=== PATIENT | female | born 1965 | race Caucasian/White ===

== ENCOUNTER 2019-05-16 15:02 | Inpatient (IN) | payer OTHER ==
--- NOTE | 2019-05-16 15:16 | PDOC ---
Rapid Medical Evaluation Chief Complaint: Blood Pressure Problem Time Seen by Provider: 05/16/19 15:14 Medical Evaluation: 05/16/19 15:14 cc: dizziness x 3 weeks HPI: Patient reports dizziness x 3 weeks and elevated blood pressure. States taking medication for HTN but not lowering her pressure. Seen in another hospital one week ago for the same but left without being seen. Denies chest pain PE: NAD unlabored breathing no edematous legs orders: ekg, labs ordered This patient will proceed to the main emergency department for further evaluation Discharge Disposition - Diagnosis Dizziness - Discharge Dispostion Condition at time of disposition: Stable - Referrals - Patient Instructions - Post Discharge Activity
--- NOTE | 2019-05-16 15:28 | PDOC ---
History of Present Illness - General Chief Complaint: Blood Pressure Problem Stated Complaint: HYPERTENSION Time Seen by Provider: 05/16/19 15:14 History Source: Patient Exam Limitations: No Limitations - History of Present Illness Initial Comments: 05/16/19 18:56 53 yo F with a hx of HTN and COPD presents to the emergency department with dizziness. Per the patient she has felt dizzy for the past 4 weeks with intermittent onset and varied duration. The patient states she developed a headache and another episode in concurrence today with worsened severity. The patient states the dizziness worsens with movement and improved with laying still. Endorses the following: nausea, vomiting, double vision. Denies the following: FND, fevers, chills, ears/nose/throat pain, chest pain, SOB, back pain, abdominal pain, dysuria, hematuria, diarrhea, and leg pain/swelling. Allergies: morphine Past History - Past Medical History Allergies/Adverse Reactions: Allergies Allergy/AdvReac Type Severity Reaction Status Date / Time morphine Allergy Verified 05/16/19 15:15 Home Medications: Ambulatory Orders Clonidine HCl 0.1 mg PO DAILY 05/16/19 Cyclobenzaprine HCl 10 mg PO HS 05/16/19 Lisinopril 20 mg PO DAILY 05/16/19 Pregabalin 200 mg PO TID 05/16/19 Tramadol HCl 50 mg PO QID 05/16/19 Umeclidinium Brm/Vilanterol Tr [Anoro Ellipta 62.5-25 Mcg INH] 1 puff IN DAILY 05/16/19 Albuterol Sulfate Inhaler - [Ventolin Hfa Inhaler -] 1 - 2 inh PO PRN 05/17/19 Escitalopram Oxalate [Lexapro -] 5 mg PO DAILY 05/17/19 Cyclobenzaprine HCl [Flexeril -] 10 mg PO HS tablet 05/19/19 Escitalopram Oxalate [Lexapro -] 20 mg PO DAILY tablet 05/19/19 Meclizine HCl [Antivert -] 25 mg PO Q6H PRN #30 tablet 05/19/19 Nicotine Patch [Nicoderm Patch -] 14 mg TD DAILY #30 patch 05/19/19 Nystatin Cream [Mycostatin] 1 applic TP BID #1 tube 05/19/19 Pramipexole Dihydrochloride [Mirapex -] 0.25 mg PO BID #60 tablet 05/19/19 Pregabalin [Lyrica -] 200 mg PO TID capsule MDD 3 05/19/19 Topiramate [Topamax -] 25 mg PO BID #30 tablet 05/19/19 COPD: No HTN: Yes Other medical history: ANXIETY - Surgical History Appendectomy: Yes Cholecystectomy: No GI Surgery: No - Immunization History Immunization Up to Date: No - Psycho Social/Smoking Cessation Hx Smoking History: Current every day smoker Have you smoked in the past 12 months: Yes Number of Cigarettes Smoked Daily: 20 Information on smoking cessation initiated: No Hx Alcohol Use: No Drug/Substance Use Hx: No Review of Systems - Review of Systems Able to Perform ROS?: Yes Is the patient limited Turkmen proficient: No Constitutional: Yes: Weakness. No: Chills, Diaphoresis, Fever HEENTM: No: Eye Pain, Ear Pain, Nose Pain, Throat Pain, Mouth Pain Respiratory: No: Cough, Shortness of Breath, Hemoptysis Cardiac (ROS): No: Chest Pain, Lightheadedness, Palpitations, Chest Tightness ABD/GI: No: Constipated, Diarrhea, Nausea, Rectal Bleeding, Vomiting, Tarry Stools : No: Burning, Dysuria, Hematuria Musculoskeletal: No: Back Pain, Joint Pain, Neck Pain Integumentary: No: Bruising, Erythema, Rash Neurological: Yes: Unsteady Gait, Dizziness. No: Headache, Numbness, Tingling, Tremors Psychiatric: No: Change in Appetite Endocrine: No: Unexplained Weight Gain, Unexplained Weight Loss Hematologic/Lymphatic: No: Anemia *Physical Exam - Vital Signs Last Vital Signs Temp Pulse Resp BP Pulse Ox 98.2 F 92 H 16 173/96 H 98 05/16/19 15:13 05/16/19 15:13 05/16/19 15:13 05/16/19 15:13 05/16/19 15:13 - Physical Exam General Appearance: Yes: Nourished, Appropriately Dressed. No: Apparent Distress, Intoxicated HEENT: positive: EOMI, EDDIE, Normal Voice, Symmetrical, Pharynx Normal, Hearing Grossly Normal. negative: Pale Conjunctivae, Scleral Icterus (R), Scleral Icterus (L), Muffled/Hoarse voice, Pharyngeal Erythema, Tonsillar Exudate, Tonsillar Erythema, Nasal Congestion, Rhinorrhea, Sinus Tenderness, Excessive drooling Neck: positive: Trachea midline, Supple. negative: Tender, Lymphadenopathy (R) , Lymphadenopathy (L), Tender lateral, Tender midline Respiratory/Chest: positive: Lungs Clear, Normal Breath Sounds. negative: Chest Tender, Respiratory Distress, Accessory Muscle Use, Crackles, Rales, Rhonchi, Stridor, Wheezing Cardiovascular: positive: Regular Rhythm, Regular Rate, S1, S2. negative: Systolic Murmur Gastrointestinal/Abdominal: positive: Normal Bowel Sounds, Flat, Soft. negative : Tender, Distended, Guarding, Rebound Lymphatic: negative: Adenopathy Musculoskeletal: positive: Normal Inspection. negative: CVA Tenderness, Vertebral Tenderness Extremity: positive: Normal Capillary Refill, Normal Inspection, Normal Range of Motion. negative: Tender, Swelling, Calf Tenderness Integumentary: positive: Normal Color, Dry, Warm. negative: Jaundice, Moist, Hives, Petechiae, Rash, Swelling Neurologic: positive: Fully Oriented, Alert, Normal Mood/Affect, Motor Strength 5/5. negative: EOM Palsy, Facial Droop, Sensory Deficit, Finger to Nose ( deficit of FTN on the RUE) ED Treatment Course - LABORATORY CBC & Chemistry Diagram: 05/17/19 07:58 05/17/19 07:58 Medical Decision Making - Medical Decision Making 05/16/19 18:59 ddx: central vs peripheral vertigo. patient to get head CT and labs to rule out electrolyte vs infectious etiology Laboratory Tests 05/16/19 05/16/19 15:41 15:51 WBC 11.3 H RBC 5.80 H Hgb 14.5 Hct 45.3 H MCV 78.2 L MCH 25.0 L MCHC 32.0 RDW 18.1 H Plt Count 303 MPV 9.6 Absolute Neuts (auto) 7.2 Neutrophils % 63.8 Lymphocytes % 23.6 Monocytes % 10.7 H Eosinophils % 1.2 Basophils % 0.7 Nucleated RBC % 0 Sodium 139 Potassium 4.5 Chloride 107 Carbon Dioxide 24 Anion Gap 8 BUN 19.4 H Creatinine 0.9 Est GFR (CKD-EPI)AfAm 84.01 Est GFR (CKD-EPI)NonAf 72.49 Random Glucose 76 Calcium 8.6 Magnesium 2.0 Total Bilirubin 0.3 AST 19 ALT 20 Alkaline Phosphatase 113 Total Protein 7.7 Albumin 3.4 "There is equivocal subtle bilateral parieto-occipital subarachnoid hyperintensity - ? artifactual in nature versus representing possible trace subarachnoid blood versus possible infectious meningitis or leptomeningeal neoplastic disease. Correlation with CT and possibly standard MRI ( without and with intravenous contrast) is suggested. " Patient's EKG: ventricular rate is 84 bpm, IL is 218 ms, and QRS is 106 ms. Sinus rhythm with 1st degree AV block. No TWI. No ST elevations or depressions. Patient to have a head CT at the time of sign out to correlate with MRI findings. Patient was signed out to Dr. Meadows Discharge - Discharge Information Problems reviewed: Yes Clinical Impression/Diagnosis: Dizziness Condition: Stable Disposition: HOME - Follow up/Referral - Patient Discharge Instructions - Post Discharge Activity
[2019-05-16] MEDS ORDERED: traMADol HCL 50 MG TABLET PO ONE (16:04)
[2019-05-16] MEDS ORDERED: PREGABALIN 100 MG CAPSULE PO ONE (16:04)
--- NOTE | 2019-05-16 16:06 | PDOC ---
Attending Attestation - Resident Resident Name: Stephen Liz - ED Attending Attestation I have performed the following: I have examined & evaluated the patient, The case was reviewed & discussed with the resident, I agree w/resident's findings & plan, Exceptions are as noted - HPI HPI: 05/16/19 16:04 53y F hx of htn, copd, presents with complaint of dizziness. Pt notes that she has felt dizzy for the past 3-4 weeks. States she usually feels ok int he morning after waking up, but during hte day,s he usually developes a headache and vertigo that she describes as feeling like eveytyhing is moving. Pt notes the symptoms as consistent until she goes to sleep, and is worse with movement but also present when she is sitting worse. pt endorses n/v and occasional double vision with the dizziness. The patient denies any focal weakness, cp, sob , palpitations, back pain, neck pain. Pt also notes that she has had difficulty ambulating for the past several weeks, needing someone to help her walk around. Pt notes she has a hx of TIAs, in the remote past when she was in [place]. PMD Autumn Exam: GENERAL: The patient is awake, alert, and fully oriented, Nontoxic - in no acute distress. HEAD: Normocephalic, atraumatic. EYES: extraocular movements intact, sclera anicteric, conjunctiva clear, no obvious nystagmus, ENT: Normal voice, Moist mucous membranes. NECK: Normal range of motion, supple LUNGS: Breath sounds equal, clear to auscultation bilaterally. No wheezes, no rhonchi, no rales. HEART: Regular rate and rhythm, without murmur, rub or gallop. ABDOMEN: Soft, nontender, No guarding, no rebound.No CVA tenderness EXTREMITIES: Normal range of motion, no edema. No cyanosis. No erythema, or tenderness. NEUROLOGICAL: No facial assymetry, Normal speech, +dysmetria with RUE Moving all 4 extremities spontaneously and symmetrically PSYCH: Normal mood, normal affect. SKIN: Warm, Dry, normal turgor concern for posssible cerebellar event vs mass will give pt reglan, tylenolm meclizine will obtain imaging - Physicial Exam PE: 05/22/19 07:34 see above - Medical Decision Making 05/16/19 17:45 mri noted for cerebeellar hyperintesnity will obtian CT/MRI will admit for further management
[2019-05-16] MEDS ORDERED: METOCLOPRAMIDE HCL INJECTION 10 MG/2 ML VIAL IVPUSH ONE (16:42)
[2019-05-16] MEDS ORDERED: MECLIZINE HCL 25 MG TABLET (FP) PO ONE (16:43)
[2019-05-16] MEDS ORDERED: ACETAMINOPHEN 1000 MG/100 ML VIAL (NON FORMULARY) IVPB ONE (16:43)
[2019-05-16 16:54] LABS: BASO % 0.7 % (0-2.0); EOS % 1.2 % (0-4.5); HEMATOCRIT 45.3 % (32.4-45.2); HEMOGLOBIN 14.5 GM/dL (10.7-15.3); LYMPH % 23.6 % (8-40); MEAN CELL VOLUME 78.2 fl (80-96); MEAN PLT VOLUME 9.6 fl (7.5-11.1); MONO % 10.7 % (3.8-10.2); NEUT % 63.8 % (42.8-82.8); PLATELET COUNT 303 K/MM3 (134-434); RDW 18.1 % (11.6-15.6); WHITE BLOOD COUNT 11.3 K/mm3 (4.0-10.0)
[2019-05-16 17:27] LABS: ALBUMIN 3.4 g/dl (3.4-5.0); BILIRUBIN,TOTAL 0.3 mg/dL (0.2-1); BLOOD UREA NITROGEN 19.4 mg/dL (7-18); CALCIUM 8.6 mg/dL (8.5-10.1); CREATININE 0.9 mg/dL (0.55-1.3); POTASSIUM 4.5 mmol/L (3.5-5.1); TOT PROT 7.7 g/dl (6.4-8.2)
[2019-05-16] MEDS ORDERED: traMADol HCL 50 MG TABLET ONE (18:04)
[2019-05-16] MEDS ORDERED: MECLIZINE HCL 25 MG TABLET (FP) ONE (18:05)
[2019-05-16] MEDS ORDERED: PREGABALIN 100 MG CAPSULE ONE (18:05)
[2019-05-16] MEDS ORDERED: METOCLOPRAMIDE HCL INJECTION 10 MG/2 ML VIAL ONE (18:05)
[2019-05-16] MEDS ORDERED: ACETAMINOPHEN INJECTION 100 ML IVPB ONE (18:06)
--- NOTE | 2019-05-16 19:26 | PDOC ---
*Physical Exam - Vital Signs Last Vital Signs Temp Pulse Resp BP Pulse Ox 98.2 F 92 H 16 173/96 H 98 05/16/19 15:13 05/16/19 15:13 05/16/19 15:13 05/16/19 15:13 05/16/19 15:13 - Physical Exam MDM: Received sign out from resident Dr. Liz. In short, pt is a 53 y/o female presenting with three weeks of worsening dizziness. Abnormal MRI findings. Radiology requested CT scan to further evaluate for ICH. Will f/u pending CT scan and admission. 16 May 2019 20:18 PM Pt reassessed. Reports she continues to feel dizzy, but not as severe as earlier. Endorses positional component to the symptoms. Usually starts over the course of the day. No recent illness, but close friend noted her personality seems different in that she is more quick to anger. 16 May 2019 20:25 PM Telephone discussion with AMELIA Jackson. Verbally appraised of the pts HPI, ED course, and current plan of management. Will admit pt to med /surg for attending Dr. Espinoza. ED Treatment Course - LABORATORY CBC & Chemistry Diagram: 05/16/19 15:41 05/16/19 15:51 - ADDITIONAL ORDERS Additional order review: Laboratory Results 05/16/19 15:51 Sodium 139 Potassium 4.5 Chloride 107 Carbon Dioxide 24 Anion Gap 8 BUN 19.4 H Creatinine 0.9 Est GFR (CKD-EPI)AfAm 84.01 Est GFR (CKD-EPI)NonAf 72.49 Random Glucose 76 Calcium 8.6 Magnesium 2.0 Total Bilirubin 0.3 AST 19 ALT 20 Alkaline Phosphatase 113 Total Protein 7.7 Albumin 3.4 05/16/19 15:41 RBC 5.80 H MCV 78.2 L MCHC 32.0 RDW 18.1 H MPV 9.6 Neutrophils % 63.8 Lymphocytes % 23.6 Monocytes % 10.7 H Eosinophils % 1.2 Basophils % 0.7 - Medications Given in the ED: ED Medications Discontinued Medications Generic Name Dose Route Start Last Admin Trade Name Freq PRN Reason Stop Dose Admin Acetaminophen 1,000 mg 05/16/19 16:43 05/16/19 18:16 Ofirmev Injection - IVPB 05/16/19 16:44 1,000 mg ONCE ONE Administration Meclizine HCl 25 mg 05/16/19 16:43 05/16/19 18:16 Antivert - PO 05/16/19 16:44 25 mg ONCE ONE Administration Metoclopramide HCl 10 mg 05/16/19 16:42 05/16/19 18:15 Reglan Injection - IVPUSH 05/16/19 16:43 10 mg ONCE ONE Administration Pregabalin 200 mg 05/16/19 16:04 05/16/19 18:14 Lyrica - PO 05/16/19 16:05 200 mg ONCE ONE Administration Tramadol HCl 50 mg 05/16/19 16:04 05/16/19 18:14 Ultram - PO 05/16/19 16:05 50 mg ONCE ONE Administration Discharge - Discharge Information Problems reviewed: Yes Clinical Impression/Diagnosis: Dizziness Condition: Stable - Admission Yes - Follow up/Referral Referrals: Pau Leyva MD [Primary Care Provider] - - Patient Discharge Instructions - Post Discharge Activity
--- NOTE | 2019-05-16 20:30 | HP ---
Admitting History and Physical - Primary Care Physician PCP: Pau Leyva - Admission Chief Complaint: Dizziness, Headache History of Present Illness: This is a 53 y/o woman with a PMHx of HTN, COPD. Who presents to the ED with dizziness. Patient reports that she has been feeling dizzy for the past 3-4 weeks. She reports usually feeling ok in the morning after waking up, but during the day, she usually develops a headache and vertigo that she describes as feeling like everything is moving. Patient reports that the symptoms are persistent until she goes to sleep, and is worse with movement, worse when sitting. Patient reports nausea, NBNB vomiting, and occasional double vision with the dizziness. Patient denies any focal weakness, CP, SOB, palpitations, back pain, neck pain. Patient reports that she has had difficulty ambulating for the past several weeks, needing someone to help her walk around. History Source: Patient Limitations to Obtaining History: No Limitations - Past Medical History Cardiovascular: Yes: HTN Pulmonary: Yes: COPD ...LMP Comment: 15 yrs ago Musculoskeletal: Yes: Chronic low back pain - Smoking History Smoking history: Current every day smoker Have you smoked in the past 12 months: Yes Aproximately how many cigarettes per day: 20 - Alcohol/Substance Use Hx Alcohol Use: No History of Substance Use: reports: None - Social History Usual Living Arrangement: Yes: With Spouse Do you think of yourself as: Straight/Heterosexual ADL: Family Assistance Occupation: Disabled History of Recent Travel: No Home Medications - Allergies Allergies/Adverse Reactions: Allergies Allergy/AdvReac Type Severity Reaction Status Date / Time morphine Allergy Verified 05/16/19 15:15 - Home Medications Home Medications: Ambulatory Orders Clonidine HCl 0.1 mg PO DAILY 05/16/19 Cyclobenzaprine HCl 10 mg PO HS 05/16/19 Lisinopril 20 mg PO DAILY 05/16/19 Pregabalin 200 mg PO TID 05/16/19 Tramadol HCl 50 mg PO QID 05/16/19 Umeclidinium Brm/Vilanterol Tr [Anoro Ellipta 62.5-25 Mcg INH] 1 puff IN DAILY 05/16/19 Albuterol Sulfate Inhaler - [Ventolin Hfa Inhaler -] 1 - 2 inh PO PRN 05/17/19 Escitalopram Oxalate [Lexapro -] 5 mg PO DAILY 05/17/19 Family Medical History Family History: Unremarkable Review of Systems - Review of Systems Constitutional: reports: Weakness Eyes: reports: No Symptoms HENT: reports: No Symptoms Neck: reports: No Symptoms Cardiovascular: reports: No Symptoms Respiratory: reports: No Symptoms Gastrointestinal: reports: No Symptoms Genitourinary: reports: No Symptoms Breasts: reports: No Symptoms Reported Musculoskeletal: reports: No Symptoms Integumentary: reports: No Symptoms Neurological: reports: Dizziness, Headache, Unsteady Gait, Weakness Endocrine: reports: No Symptoms Hematology/Lymphatic: reports: No Symptoms Psychiatric: reports: No Symptoms Pain Intensity: 6 Physical Examination Vital Signs: Vital Signs Temperature 98.2 F 05/16/19 15:13 Pulse Rate 92 H 05/16/19 15:13 Respiratory Rate 16 05/16/19 15:13 Blood Pressure 173/96 H 05/16/19 15:13 O2 Sat by Pulse Oximetry (%) 98 05/16/19 15:13 Constitutional: Yes: Well Nourished, No Distress, Calm, Obese Eyes: Yes: WNL, Conjunctiva Clear, EOM Intact, PERRL HENT: Yes: WNL, Atraumatic, Normocephalic Neck: Yes: WNL, Supple, Trachea Midline Cardiovascular: Yes: WNL, Regular Rate and Rhythm, S1, S2 Respiratory: Yes: Diminished Gastrointestinal: Yes: WNL, Normal Bowel Sounds, Soft, Abdomen, Obese ...Rectal Exam: Yes: Deferred Renal/: Yes: WNL Breast(s): Yes: WNL Musculoskeletal: Yes: Back Pain Extremities: Yes: WNL Edema: No Peripheral Pulses WNL: Yes Integumentary: Yes: Tattoos Wound/Incision: Yes: Open to air (right ventral aspect- scabbing) Neurological: Yes: Alert, Oriented ...Motor Strength: LUE (5/5), LLE (5/5), RUE (4/5), RLE (5/5) Psychiatric: Yes: WNL, Alert, Oriented Labs: CBC, BMP 05/16/19 15:41 05/16/19 15:51 Laboratory Results - last 24 hr 05/16/19 05/16/19 05/16/19 15:41 15:51 20:50 WBC 11.3 H RBC 5.80 H Hgb 14.5 Hct 45.3 H MCV 78.2 L MCH 25.0 L MCHC 32.0 RDW 18.1 H Plt Count 303 MPV 9.6 Absolute Neuts (auto) 7.2 Neutrophils % 63.8 Lymphocytes % 23.6 Monocytes % 10.7 H Eosinophils % 1.2 Basophils % 0.7 Nucleated RBC % 0 Sodium 139 Potassium 4.5 Chloride 107 Carbon Dioxide 24 Anion Gap 8 BUN 19.4 H Creatinine 0.9 Est GFR (CKD-EPI)AfAm 84.01 Est GFR (CKD-EPI)NonAf 72.49 Random Glucose 76 Calcium 8.6 Magnesium 2.0 Total Bilirubin 0.3 AST 19 ALT 20 Alkaline Phosphatase 113 Total Protein 7.7 Albumin 3.4 Urine Color Yellow Urine Appearance Clear Urine pH 5.0 Ur Specific [place] 1.030 Urine Protein Trace Urine Glucose (UA) Negative Urine Ketones Trace H Urine Blood Negative Urine Nitrite Negative Urine Bilirubin Negative Urine Urobilinogen 0.2 Ur Leukocyte Esterase Negative Intake & Output 05/14/19 05/15/19 05/16/19 05/17/19 23:59 23:59 23:59 23:59 Weight 102.058 kg Imaging - Results Chest X-ray: Report Reviewed, Image Reviewed Cat Scan: Report Reviewed, Image Reviewed MRI: Report Reviewed, Image Reviewed EKG: Image Reviewed Problem List - Problems (1) Dizziness Assessment/Plan: r/o Mass vs Infection Head CT- no acute intracranial pathology Brain MRI- cerebellar hyperintensity Neurologist aware, will follow Meclizine, Reglan given with some improvement Continue Meclizine Neuro checks Fall Precautions Monitor vitals Monitor CBC, BMP Code(s): R42 - DIZZINESS AND GIDDINESS (2) Headache Assessment/Plan: Head CT- no acute intracranial pathology Brain MRI- cerebellar hyperintensity Neurology following Tylenol prn Neuro checks Monitor vitals Monitor CBC Code(s): R51 - HEADACHE (3) Abnormal finding on MRI of brain Assessment/Plan: Neurologist aware, following Neurochecks Head CT reviewed Code(s): R90.89 - OTH ABNORMAL FINDINGS ON DIAGNOSTIC IMAGING OF CNSL (4) Wound of right foot Assessment/Plan: Wound care Right Foot Xray Code(s): S91.301A - UNSPECIFIED OPEN WOUND, RIGHT FOOT, INITIAL ENCOUNTER (5) HTN (hypertension) Assessment/Plan: stable Monitor BP Continue Code(s): I10 - ESSENTIAL (PRIMARY) HYPERTENSION (6) COPD (chronic obstructive pulmonary disease) Assessment/Plan: stable Continue home meds Smoking Cessation Monitor vitals O2 Code(s): J44.9 - CHRONIC OBSTRUCTIVE PULMONARY DISEASE, UNSPECIFIED (7) Tobacco dependence Assessment/Plan: Counseled on smoking cessation, patient is amendable Nicoderm patch offered, patient agrees Code(s): F17.200 - NICOTINE DEPENDENCE, UNSPECIFIED, UNCOMPLICATED Assessment/Plan This is a 53 y/o woman with a PMHx of HTN, COPD, Chronic Back Pain. Admitted for Dizziness and Abnormal Brain MRI for further evaluation of their emergent condition. Plan: See Problem List FEN PO fluids as tolerated Replete lytes prn Low Na Diet DVT ppx OOB SCDs Heparin SQ Dispo: Requires Inpatient Care Visit type - Emergency Visit Emergency Visit: Yes ED Registration Date: 05/16/19 Care time: The patient presented to the Emergency Department on the above date and was hospitalized for further evaluation of their emergent condition. - New Patient This patient is new to me today: Yes Date on this admission: 05/16/19 - Critical Care Critical Care patient: No
[2019-05-16 21:08] LABS: URINE APPEARANCE CLEAR; URINE BILIRUBIN NEGATIVE (NEGATIVE); URINE COLOR YELLOW; URINE GLUCOSE (UA) NEGATIVE (NEGATIVE); URINE KETONE TRACE (NEGATIVE); URINE LEUK ESTERASE NEGATIVE (NEGATIVE); URINE NITRITE NEGATIVE (NEGATIVE); URINE PROTEIN TRACE (NEGATIVE); URINE UROBILINOGEN 0.2 mg/dL (0.2-1.0)
[2019-05-17] MEDS: traMADol HCL 50 MG TABLET PO PRN ×3 (01:30→18:40)
[2019-05-17] MEDS ORDERED: traMADol HCL 50 MG TABLET ONE (01:40)
[2019-05-17] MEDS: MECLIZINE HCL 25 MG TABLET (FP) PO PRN ×3 (03:38→18:39)
[2019-05-17] MEDS ORDERED: MECLIZINE HCL 25 MG TABLET (FP) ONE (03:39)
[2019-05-17 05:52] VITALS: BMI 36.1
[2019-05-17 06:05] LABS: COCAINE, UR NEGATIVE ng/ml (CUTOFF=300); METHADONE, UR NEGATIVE ng/ml (CUTOFF=300); OPIATES, URI NEGATIVE ng/ml (CUTOFF=300); PHENCYCLIDINE,URINE NEGATIVE ng/ml (CUTOFF=25); URINE AMPHETAMINES NEGATIVE ng/ml (CUTOFF=500); URINE BARBITURATES NEGATIVE ng/ml (CUTOFF=200); URINE BENZODIAZEPINES NEGATIVE ng/ml (CUTOFF=200)
[2019-05-17 09:02] LABS: BASO % 0.7 % (0-2.0); EOS % 1.5 % (0-4.5); HEMOGLOBIN 13.3 GM/dL (10.7-15.3); LYMPH % 19.2 % (8-40); MCH 24.9 pg (25.7-33.7); MCHC 31.8 g/dl (32.0-36.0); MEAN CELL VOLUME 78.3 fl (80-96); MEAN PLT VOLUME 9.4 fl (7.5-11.1); MONO % 9.8 % (3.8-10.2); NEUT % 68.8 % (42.8-82.8); PLATELET COUNT 267 K/MM3 (134-434); RBC 5.37 M/mm3 (3.60-5.2); RDW 17.9 % (11.6-15.6); WHITE BLOOD COUNT 9.7 K/mm3 (4.0-10.0)
[2019-05-17] MEDS ORDERED: ALBUTEROL SO4 0.083% IH SOL 2.5 MG/3 ML VIAL.NEB. NEB ONE (09:31)
[2019-05-17 09:47] LABS: BLOOD UREA NITROGEN 25.9 mg/dL (7-18); CALCIUM 8.2 mg/dL (8.5-10.1); MAGNESIUM 2.1 mg/dL (1.8-2.4); PHOSPHOROUS 4.9 mg/dL (2.5-4.9); POTASSIUM 4.2 mmol/L (3.5-5.1)
[2019-05-17] MEDS ORDERED: cloNIDine HCL 0.1 MG TABLET PO SCH (10:00)
[2019-05-17] MEDS ORDERED: ALBUTEROL SO4 0.5 % INH SOLN 2.5 MG/0.5 ML VIAL.NEB. NEB ONE (10:00)
--- NOTE | 2019-05-17 10:44 | PN ---
Progress Note, Physician Chief Complaint: Dizziness Headache History of Present Illness: NAD Still c/o headache 10/03, although improved with tramadol Dizziness improved---- + Nystagmus---> Vertigo--- being given Meclizine PRN Has right lateral foot wound, dry with minimal drainage. Has not seeked any medical attention for it. - Current Medication List Current Medications: Active Medications Clonidine (Catapres -) 0.1 mg PO DAILY MARLEN Lisinopril (Prinivil) 20 mg PO DAILY MARLEN Meclizine HCl (Antivert -) 25 mg PO Q6H PRN PRN Reason: VERTIGO Last Admin: 05/17/19 03:38 Dose: 25 mg Nicotine (Nicoderm Patch -) 14 mg TD DAILY MARLEN Tramadol HCl (Ultram -) 50 mg PO Q6H PRN PRN Reason: PAIN LEVEL 7 - 10 Last Admin: 05/17/19 08:26 Dose: 50 mg Umeclidinium/Vilanterol (Anoro Ellipta 62.5-25 Mcg Inh) 1 puff IH DAILY MARLEN - Objective Vital Signs: Vital Signs Temperature 97.7 F 05/17/19 04:00 Pulse Rate 72 05/17/19 08:00 Respiratory Rate 20 05/17/19 04:00 Blood Pressure 102/70 05/17/19 08:00 O2 Sat by Pulse Oximetry (%) 97 05/17/19 04:00 Constitutional: Yes: Well Nourished, No Distress, Calm, Obese Cardiovascular: Yes: Regular Rate and Rhythm Respiratory: Yes: Regular Gastrointestinal: Yes: Normal Bowel Sounds, Soft Genitourinary: Yes: WNL Musculoskeletal: Yes: WNL Extremities: Yes: WNL Edema: No Peripheral Pulses WNL: Yes Wound/Incision: Yes: Other (Right lateral foot ulceration) Neurological: Yes: Alert, Oriented Psychiatric: Yes: Alert, Oriented Labs: CBC, BMP 05/17/19 07:58 05/17/19 07:58 Problem List - Problems (1) Dizziness Assessment/Plan: -Head CT- no acute intracranial pathology -Brain MRI- cerebellar hyperintensity-There is equivocal subtle bilateral parieto-occipital subarachnoid hyperintensity - ? artifactual in nature versus representing possible trace subarachnoid blood versus possible infectious meningitis or leptomeningeal neoplastic disease. -Orthostatic BP negative -Neruoloyg consult pending -Meclizine 25 mg PO Q6H PRN Problems reviewed: Yes Code(s): R42 - DIZZINESS AND GIDDINESS (2) Headache Problems reviewed: Yes Code(s): R51 - HEADACHE (3) HTN (hypertension) Assessment/Plan: -Continue home meds Problems reviewed: Yes Code(s): I10 - ESSENTIAL (PRIMARY) HYPERTENSION (4) Tobacco dependence Assessment/Plan: -Nicotine patch Problems reviewed: Yes Code(s): F17.200 - NICOTINE DEPENDENCE, UNSPECIFIED, UNCOMPLICATED (5) Wound of right foot Assessment/Plan: -Podiatry consult -Minimal drainage Problems reviewed: Yes Code(s): S91.301A - UNSPECIFIED OPEN WOUND, RIGHT FOOT, INITIAL ENCOUNTER Assessment/Plan See problem list
--- NOTE | 2019-05-17 10:46 | EKG ---
Test Reason : Blood Pressure : / mmHG Vent. Rate : 084 BPM Atrial Rate : 084 BPM P-R Int : 218 ms QRS Dur : 106 ms QT Int : 378 ms P-R-T Axes : 056 -07 040 degrees QTc Int : 446 ms SINUS RHYTHM WITH 1ST DEGREE A-V BLOCK POSSIBLE LEFT ATRIAL ENLARGEMENT LEFT VENTRICULAR HYPERTROPHY ABNORMAL ECG NO PREVIOUS ECGS AVAILABLE Confirmed by WONG MONTEZ MD ([id number]) on 05/17/2019 10:45:57 AM Referred By: Confirmed By:WONG MONTEZ MD
[2019-05-17] MEDS: NICOTINE 14 MG/24 HOURS TOPICAL PATCH TD SCH (11:08)
[2019-05-17] MEDS: LISINOPRIL 20 MG TABLET (FP) PO SCH (11:08)
[2019-05-17] MEDS ORDERED: ACETAMINOPHEN 500 MG TABLET (FP) PO PRN (11:34)
[2019-05-17] MEDS: ALBUTEROL SO4 2.5/IPRATROPIUM 0.5 INH SOL 3 ML VIAL.NEB. NEB SCH ×3 (12:00→20:47)
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
[2019-05-17] MEDS: ESCITALOPRAM OXALATE 20 MG TABLET PO SCH (12:43)
[2019-05-17] MEDS: PREGABALIN 100 MG CAPSULE PO SCH ×2 (13:01→21:44)
[2019-05-17] MEDS: UMECLIDINIUM/VILANTEROL (ANORO) 62.5/25 MCG INHALER IH SCH (18:35)
--- NOTE | 2019-05-17 20:00 | CONSULT ---
Consult - text type - Consultation Consultation Note: NEUROLOGY CONSULTATION is greatly appreciated: Events reviewed, patient examined with her at the bedside. This 53 yo RH, m, woman with h/o HTN, depression, and COPD, continues to smoke- on clonidine, prinival, lexapro (20), albuterol, nicoderm. Chronic headaches and progressive pain since teenage years. Episodic pounding dorina and holocranial headaches with nausea, photophobia, now on a daily basis. Takes "Goodie powder from [place]" each containing: Tylenol (260 mg), ASA (520!) and caffeine (32.5), She takes two packets 3 times every day. Total BEKC=0442 mg; FBA=1964 mg; otrpkupd=028 mg. Over the last year has predominantly occipital pounding headaches with prominant nausea, vertigo, diplopia and unsteadiness. Meclizine is ineffective. Progressive leg pains since her 20's. Begain in her feet and ankles and "spread " to her back. LS Laminectomy in [place] "did nothing." Feet always numb. Worst at night. Can't sleep. On cyclobenzaprine, tramadol and Lyrica (200 TID) noting she "can't live without the Lyrica." GENA: Obese. Neg SLR to 90. Well-healed LS scar. NEURO: MS/speech: Normal CN II-XII: normal without Nystagmus Motor: No drift. Fine tremor. Normal strength and reflexes including AJ's. No FTN dystaxia Sensory normal! Gait stiff-legged. IMP: Normal neurological exam Migraine headaches. Vertebrobasilar migraines with vertigo, ataxia, nausea and diplopia Chronic daily headache syndrome due to analgesic abuse and rebound headaches (see above) Severe Restless Legs Syndrome. SUGGEST: Begin topiramate 25 mg BID x 2 days then 50mg BID Begin Pramipexole .25 mg BID x 2 days then .5 mg BID STOP GOODIE POWDER and D/C tylenol, flexoril, tramadol, meclizine Continue Lyrica 200 mg TID Neuro F/U as out patient. Thank you very much Gilles Aden MD
[2019-05-17] MEDS: TOPIRAMATE 25 MG TABLET (FP) PO SCH (21:45)
[2019-05-17] MEDS: PRAMIPEXOLE DIHYDROCHLORIDE 0.25 MG TABLET PO SCH (21:45)
[2019-05-17] MEDS ORDERED: CYCLOBENZAPRINE HCL 10 MG TABLET (FP) PO SCH (22:00)
[2019-05-17] MEDS: cloNIDine HCL 0.1 MG TABLET PO SCH (22:12)
[2019-05-18] MEDS: ACETAMINOPHEN 500 MG TABLET (FP) PO PRN ×2 (02:17→09:07)
[2019-05-18] MEDS: traMADol HCL 50 MG TABLET PO PRN ×3 (04:25→21:46)
[2019-05-18] MEDS: PREGABALIN 100 MG CAPSULE PO SCH ×3 (05:55→21:44)
[2019-05-18] MEDS: ALBUTEROL SO4 2.5/IPRATROPIUM 0.5 INH SOL 3 ML VIAL.NEB. NEB SCH ×3 (07:30→16:02)
[2019-05-18] MEDS: NICOTINE 14 MG/24 HOURS TOPICAL PATCH TD SCH (09:08)
[2019-05-18] MEDS: UMECLIDINIUM/VILANTEROL (ANORO) 62.5/25 MCG INHALER IH SCH (09:09)
[2019-05-18] MEDS: TOPIRAMATE 25 MG TABLET (FP) PO SCH ×2 (09:09→21:46)
[2019-05-18] MEDS: ESCITALOPRAM OXALATE 20 MG TABLET PO SCH (09:09)
[2019-05-18] MEDS: PRAMIPEXOLE DIHYDROCHLORIDE 0.25 MG TABLET PO SCH ×2 (09:09→21:47)
--- NOTE | 2019-05-18 11:34 | PN ---
Progress Note, Physician Chief Complaint: Dizziness Headache History of Present Illness: NAD Still c/o headache 10/03, although improved with tramadol Dizziness improved---- + Nystagmus---> Vertigo--- being given Meclizine PRN Has right lateral foot wound, dry with minimal drainage. Seen by podiatry yesterday + orthostatics this AM & Tachycardiac - Current Medication List Current Medications: Active Medications Acetaminophen (Tylenol -) 1,000 mg PO Q6H PRN PRN Reason: pain 1-5 Last Admin: 05/18/19 09:07 Dose: 1,000 mg Albuterol/Ipratropium (Duoneb -) 1 amp NEB RQID [facility] Last Admin: 05/18/19 07:30 Dose: 1 amp Clonidine (Catapres -) 0.1 mg PO HS [facility] Escitalopram Oxalate (Lexapro -) 20 mg PO DAILY [facility] Last Admin: 05/18/19 09:09 Dose: 20 mg Nicotine (Nicoderm Patch -) 14 mg TD DAILY [facility] Last Admin: 05/18/19 09:08 Dose: 14 mg Pramipexole Dihydrochloride (Mirapex -) 0.25 mg PO BID [facility] Last Admin: 05/18/19 09:09 Dose: 0.25 mg Pregabalin (Lyrica -) 200 mg PO TID [facility] Last Admin: 05/18/19 05:55 Dose: 200 mg Topiramate (Topamax -) 25 mg PO BID [facility] Last Admin: 05/18/19 09:09 Dose: 25 mg Umeclidinium/Vilanterol (Anoro Ellipta 62.5-25 Mcg Inh) 1 puff IH DAILY [facility] Last Admin: 05/18/19 09:09 Dose: 1 puff - Objective Vital Signs: Vital Signs Temperature 98.7 F 05/18/19 06:00 Pulse Rate 84 05/18/19 10:00 Respiratory Rate 18 05/18/19 06:00 Blood Pressure 107/57 L 05/18/19 10:00 O2 Sat by Pulse Oximetry (%) 96 05/17/19 21:00 Constitutional: Yes: Well Nourished, No Distress, Anxious Cardiovascular: Yes: Regular Rate and Rhythm Respiratory: Yes: Regular Gastrointestinal: Yes: Normal Bowel Sounds, Soft, Abdomen, Obese Genitourinary: Yes: WNL Musculoskeletal: Yes: Back Pain Extremities: Yes: WNL Edema: No Peripheral Pulses WNL: Yes Wound/Incision: Yes: Dressing Dry and Intact (right foot) Neurological: Yes: Alert, Oriented Psychiatric: Yes: Alert, Oriented Labs: CBC, BMP 05/17/19 07:58 05/17/19 07:58 Problem List - Problems (1) Dizziness Assessment/Plan: -Head CT- no acute intracranial pathology -Brain MRI- cerebellar hyperintensity-There is equivocal subtle bilateral parieto-occipital subarachnoid hyperintensity - ? artifactual in nature versus representing possible trace subarachnoid blood versus possible infectious meningitis or leptomeningeal neoplastic disease. -Orthostatic BP at first negative, repeat positive -Neruology consult appreciated -Meclizine 25 mg PO Q6H PRN -Started on Topamax 25 mg po bid + Pramipexole 0.25 mg po BID Problems reviewed: Yes Code(s): R42 - DIZZINESS AND GIDDINESS (2) Headache Assessment/Plan: -resolved Problems reviewed: Yes Code(s): R51 - HEADACHE (3) HTN (hypertension) Assessment/Plan: -all meds on hold due to hypotension this AM -EKG-NSR -Cardiology consult Problems reviewed: Yes Code(s): I10 - ESSENTIAL (PRIMARY) HYPERTENSION (4) Tobacco dependence Assessment/Plan: -Nicotine patch Problems reviewed: Yes Code(s): F17.200 - NICOTINE DEPENDENCE, UNSPECIFIED, UNCOMPLICATED (5) Wound of right foot Assessment/Plan: -Podiatry consult appreciated -Minimal drainage Problems reviewed: Yes Code(s): S91.301A - UNSPECIFIED OPEN WOUND, RIGHT FOOT, INITIAL ENCOUNTER Assessment/Plan See problem list If cleared by Cardiology, can be discharged in AM
[2019-05-18] MEDS: LISINOPRIL 20 MG TABLET (FP) PO SCH (11:56)
[2019-05-18] MEDS: cloNIDine HCL 0.1 MG TABLET PO SCH (11:56)
--- NOTE | 2019-05-18 13:53 | CON.CARD ---
Consult Consult Specialty:: cardiology Reason for Consultation:: orthostatic hypotension - History of Present Illness History of Present Illness: 53 y/o woman with a PMHx of HTN, COPD. Who presents to the ED with dizziness. Patient reports that she has been feeling dizzy for the past 3-4 weeks. She reports usually feeling ok in the morning after waking up, but during the day, she usually develops a headache and vertigo that she describes as feeling like everything is moving. She is being evaluated for rebound headaches. She has poor sensation of her feet and burning in the feet. Noted to have decreased BP with significant orthostatic decline SBP standing of 70mmHg with HR 120bpm. Has not takin BP medications. Was on Clonidine for ho ETOH ECG NSR no ST T changes. - History Source History Provided By: Patient - Past Medical History Cardio/Vascular: Yes: HTN Pulmonary: Yes: COPD ...LMP Comment: 15 yrs ago Musculoskeletal: Yes: Chronic low back pain - Alcohol/Substance Use Hx Alcohol Use: No History of Substance Use: reports: None - Smoking History Smoking history: Current every day smoker Have you smoked in the past 12 months: Yes Aproximately how many cigarettes per day: 20 - Social History ADL: Family Assistance Occupation: Disabled History of Recent Travel: No Home Medications - Allergies Allergies/Adverse Reactions: Allergies Allergy/AdvReac Type Severity Reaction Status Date / Time morphine Allergy Verified 05/16/19 15:15 - Home Medications Home Medications: Ambulatory Orders Clonidine HCl 0.1 mg PO DAILY 05/16/19 Cyclobenzaprine HCl 10 mg PO HS 05/16/19 Lisinopril 20 mg PO DAILY 05/16/19 Pregabalin 200 mg PO TID 05/16/19 Tramadol HCl 50 mg PO QID 05/16/19 Umeclidinium Brm/Vilanterol Tr [Anoro Ellipta 62.5-25 Mcg INH] 1 puff IN DAILY 05/16/19 Albuterol Sulfate Inhaler - [Ventolin Hfa Inhaler -] 1 - 2 inh PO PRN 05/17/19 Escitalopram Oxalate [Lexapro -] 5 mg PO DAILY 05/17/19 Review of Systems - Review of Systems Constitutional: reports: No Symptoms Eyes: reports: No Symptoms HENT: reports: No Symptoms Neck: reports: No Symptoms Cardiovascular: denies: Chest Pain, Edema, Palpitations, Shortness of Breath Respiratory: reports: No Symptoms Gastrointestinal: reports: No Symptoms Genitourinary: reports: No Symptoms Breasts: reports: No Symptoms Reported Vital Signs: Vital Signs Temperature 98.7 F 05/18/19 06:00 Pulse Rate 84 05/18/19 10:00 Respiratory Rate 18 05/18/19 06:00 Blood Pressure 107/57 L 05/18/19 10:00 O2 Sat by Pulse Oximetry (%) 96 05/17/19 21:00 Selected Entries 05/18/19 10:00 Blood Pressure 98/60 [Sitting] Blood Pressure 75/46 L [Standing] Blood Pressure 107/57 L [Supine] Constitutional: Yes: Well Nourished, No Distress, Calm Eyes: Yes: Conjunctiva Clear, EOM Intact HENT: Yes: Atraumatic, Normocephalic Neck: Yes: Supple, Trachea Midline Respiratory: Yes: Regular, CTA Bilaterally Gastrointestinal: Yes: Normal Bowel Sounds, Soft Cardiovascular: Yes: Regular Rate and Rhythm JVD: No Carotid Bruit: No PMI: Non-Displaced Heart Sounds: Yes: S1, S2 Murmur: No: Systolic Murmur, Diastolic Murmur Edema: No Peripheral Pulses WNL: Yes - Other Data Labs, Other Data: CBC, BMP 05/17/19 07:58 05/17/19 07:58 Imaging - Results Chest X-ray: Report Reviewed Problem List - Problems (1) Orthostatic hypotension Code(s): I95.1 - ORTHOSTATIC HYPOTENSION Assessment/Plan 53 F with rebound GUTIÉRREZ and possible neuropathy noted to have severe orthostatic BP decline. Has ho HTN adn had been on clonidine with prior ETOH ise hx. Discontinue Clonidine. Possibly pre-renal azotemia vs autonomic dysfunction. Give NS @ 150cc/hr x 1 L Monitor orthostatics after IV fluids.
--- NOTE | 2019-05-18 15:09 | EKG ---
Test Reason : Blood Pressure : / mmHG Vent. Rate : 098 BPM Atrial Rate : 098 BPM P-R Int : 164 ms QRS Dur : 086 ms QT Int : 358 ms P-R-T Axes : 051 006 037 degrees QTc Int : 457 ms NORMAL SINUS RHYTHM POSSIBLE LEFT ATRIAL ENLARGEMENT BORDERLINE ECG WHEN COMPARED WITH ECG OF 16-MAY-2019 15:24, [place] INTERVAL HAS DECREASED Confirmed by KAITY WELLS, CORRINE ([id number]) on 05/18/2019 3:09:10 PM Referred By: REID MIRAMONTES DR Confirmed By:CORRINE BRICENO MD
[2019-05-18] MEDS ORDERED: ALBUTEROL SO4 2.5/IPRATROPIUM 0.5 INH SOL 3 ML VIAL.NEB. NEB PRN (16:13)
[2019-05-18] MEDS ORDERED: cloNIDine HCL 0.1 MG TABLET PO SCH (22:00)
[2019-05-19] MEDS: PREGABALIN 100 MG CAPSULE PO SCH ×2 (06:07→13:12)
[2019-05-19] MEDS ORDERED: PT OWN MED DRAWER 7, Y5N ONE (08:00)
[2019-05-19] MEDS: traMADol HCL 50 MG TABLET PO PRN (10:22)
[2019-05-19] MEDS: NICOTINE 14 MG/24 HOURS TOPICAL PATCH TD SCH (10:22)
--- NOTE | 2019-05-19 10:22 | CON.PSL ---
Psychology Consult History Provided By: Patient Limitations to Obtaining History: No Limitations Current Medications: Active Medications Acetaminophen (Tylenol -) 1,000 mg PO Q6H PRN PRN Reason: pain 1-5 Last Admin: 05/18/19 09:07 Dose: 1,000 mg Albuterol/Ipratropium (Duoneb -) 1 amp NEB QID PRN PRN Reason: SHORT OF BREATH/WHEEZING Clonidine (Catapres -) 0.1 mg PO HS [facility] Last Admin: 05/18/19 21:46 Dose: 0.1 mg Escitalopram Oxalate (Lexapro -) 20 mg PO DAILY [facility] Last Admin: 05/18/19 09:09 Dose: 20 mg Nicotine (Nicoderm Patch -) 14 mg TD DAILY [facility] Last Admin: 05/18/19 09:08 Dose: 14 mg Pramipexole Dihydrochloride (Mirapex -) 0.25 mg PO BID [facility] Last Admin: 05/18/19 21:47 Dose: 0.25 mg Pregabalin (Lyrica -) 200 mg PO TID [facility] Last Admin: 05/19/19 06:07 Dose: 200 mg Topiramate (Topamax -) 25 mg PO BID [facility] Last Admin: 05/18/19 21:46 Dose: 25 mg Tramadol HCl (Ultram -) 50 mg PO Q8H PRN PRN Reason: PAIN LEVEL 7 - 10 Last Admin: 05/18/19 21:46 Dose: 50 mg Umeclidinium/Vilanterol (Anoro Ellipta 62.5-25 Mcg Inh) 1 puff IH DAILY [facility] Last Admin: 05/18/19 09:09 Dose: 1 puff Allergies: Allergies Allergy/AdvReac Type Severity Reaction Status Date / Time morphine Allergy Verified 05/16/19 15:15 Does patient have pain?: Yes Pain Location Body Site: Elbow Pain Description: Chronic Hx Alcohol Use: No Hx Substance Use: Yes (She was on opiates for Pain Relief.) Substance Use Type: Opiates (She admitted to becoming addicted and says she got herself off them.) Hx Substance Use Treatment: No Current Medical Exam-Psy Orientation: Time, Person, Place Immediate Term Memory: 06/26 Expressive: Coherent Receptive: Age Appropriate Comprehension of Spoken Words Hallucinations: Absent Thought Process: Intact Depression: Severe Hopelessness: Yes (She did not state overtly that she was hopeless but see next comment.) Loss of Interest: No Anxiety Level: Moderate Danger to Self and Others: No (However, she wishes that it would all be over yet does not intend to take her own life.) Appetite: Good [employer] Intact: No (Roommates TV was an interfering factor.) Repeats 3 words told earlier: 2/3 Support System: Spouse, Child/Children, Family Problem List - Problem (1) 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 She is a transplant from [place] as she about a year ago to an [place] who is seeking his citizenship. She feels that he loves her as she does him. She [place] no friends as yet in this [place] The patient was taught basic anxiety, depression and pain management interventions. If she is still an inpatient after my return from the weekend, she would like a hypnosis treatment for her pain.
[2019-05-19] MEDS: TOPIRAMATE 25 MG TABLET (FP) PO SCH (10:29)
[2019-05-19] MEDS: UMECLIDINIUM/VILANTEROL (ANORO) 62.5/25 MCG INHALER IH SCH (10:29)
[2019-05-19] MEDS: PRAMIPEXOLE DIHYDROCHLORIDE 0.25 MG TABLET PO SCH (10:29)
[2019-05-19] MEDS: ESCITALOPRAM OXALATE 20 MG TABLET PO SCH (10:29)
[2019-05-19 10:43] VITALS: BP 122/88; PULSE 92; TEMP 98.3
--- NOTE | 2019-05-19 12:19 | DS ---
Physical Examination Vital Signs: Vital Signs Temperature 98.3 F 05/19/19 10:00 Pulse Rate 92 H 05/19/19 10:00 Respiratory Rate 18 05/19/19 10:00 Blood Pressure 122/88 05/19/19 10:00 O2 Sat by Pulse Oximetry (%) 97 05/18/19 21:00 Findings/Remarks: Laboratory Last Values WBC 9.7 K/mm3 (4.0-10.0) 05/17/19 07:58 RBC 5.37 M/mm3 (3.60-5.2) H 05/17/19 07:58 Hgb 13.3 GM/dL (10.7-15.3) 05/17/19 07:58 Hct 42.0 % (32.4-45.2) 05/17/19 07:58 MCV 78.3 fl (80-96) L 05/17/19 07:58 MCH 24.9 pg (25.7-33.7) L 05/17/19 07:58 MCHC 31.8 g/dl (32.0-36.0) L 05/17/19 07:58 RDW 17.9 % (11.6-15.6) H 05/17/19 07:58 Plt Count 267 K/MM3 (134-434) 05/17/19 07:58 MPV 9.4 fl (7.5-11.1) 05/17/19 07:58 Absolute Neuts (auto) 6.7 K/mm3 (1.5-8.0) 05/17/19 07:58 Neutrophils % 68.8 % (42.8-82.8) 05/17/19 07:58 Lymphocytes % 19.2 % (8-40) 05/17/19 07:58 Monocytes % 9.8 % (3.8-10.2) 05/17/19 07:58 Eosinophils % 1.5 % (0-4.5) 05/17/19 07:58 Basophils % 0.7 % (0-2.0) 05/17/19 07:58 Nucleated RBC % 0 % (0-0) 05/17/19 07:58 Sodium 139 mmol/L (136-145) 05/17/19 07:58 Potassium 4.2 mmol/L (3.5-5.1) 05/17/19 07:58 Chloride 107 mmol/L (98-107) 05/17/19 07:58 Carbon Dioxide 22 mmol/L (21-32) 05/17/19 07:58 Anion Gap 9 MMOL/L (8-16) 05/17/19 07:58 BUN 25.9 mg/dL (7-18) H 05/17/19 07:58 Creatinine 1.0 mg/dL (0.55-1.3) 05/17/19 07:58 Est GFR (CKD-EPI)AfAm 73.97 05/17/19 07:58 Est GFR (CKD-EPI)NonAf 63.82 05/17/19 07:58 Random Glucose 83 mg/dL (74-106) 05/17/19 07:58 Hemoglobin A1c % 5.2 % (4.2-6.3) 05/17/19 07:58 Calcium 8.2 mg/dL (8.5-10.1) L 05/17/19 07:58 Phosphorus 4.9 mg/dL (2.5-4.9) 05/17/19 07:58 Magnesium 2.1 mg/dL (1.8-2.4) 05/17/19 07:58 Total Bilirubin 0.3 mg/dL (0.2-1) 05/16/19 15:51 AST 19 U/L (15-37) 05/16/19 15:51 ALT 20 U/L (13-61) 05/16/19 15:51 Alkaline Phosphatase 113 U/L (45-117) 05/16/19 15:51 Total Protein 7.7 g/dl (6.4-8.2) 05/16/19 15:51 Albumin 3.4 g/dl (3.4-5.0) 05/16/19 15:51 Urine Color Yellow 05/16/19 20:50 Urine Appearance Clear 05/16/19 20:50 Urine pH 5.0 (5.0-8.0) 05/16/19 20:50 Ur Specific [place] 1.030 (1.010-1.035) 05/16/19 20:50 Urine Protein Trace (NEGATIVE) 05/16/19 20:50 Urine Glucose (UA) Negative (NEGATIVE) 05/16/19 20:50 Urine Ketones Trace (NEGATIVE) H 05/16/19 20:50 Urine Blood Negative (NEGATIVE) 05/16/19 20:50 Urine Nitrite Negative (NEGATIVE) 05/16/19 20:50 Urine Bilirubin Negative (NEGATIVE) 05/16/19 20:50 Urine Urobilinogen 0.2 mg/dL (0.2-1.0) 05/16/19 20:50 Ur Leukocyte Esterase Negative (NEGATIVE) 05/16/19 20:50 Opiates Screen Negative ng/ml (GWWKSQ=373) 05/17/19 04:30 Methadone Screen Negative ng/ml (AKOSOG=326) 05/17/19 04:30 Barbiturate Screen Negative ng/ml (LFJCVS=667) 05/17/19 04:30 Phencyclidine Screen Negative ng/ml (CUTOFF=25) 05/17/19 04:30 Ur Amphetamines Screen Negative ng/ml (ENCSOU=243) 05/17/19 04:30 MDMA (Ecstasy) Screen Negative ng/ml (TXMNPV=586) 05/17/19 04:30 Benzodiazepines Screen Negative ng/ml (SBKJZL=023) 05/17/19 04:30 Cocaine Screen Negative ng/ml (JBDADP=441) 05/17/19 04:30 U Marijuana (THC) Screen Negative ng/ml (CUTOFF=50) 05/17/19 04:30 Alcohol, Quantitative < 3 mg/dL (0.0-5.0) 05/17/19 07:58 Active Medications Generic Name Dose Route Start Last Admin Trade Name Freq PRN Reason Stop Dose Admin Acetaminophen 1,000 mg 05/17/19 11:43 05/18/19 09:07 Tylenol - PO 1,000 mg Q6H PRN Administration pain 1-5 Albuterol/Ipratropium 1 amp 05/18/19 16:13 Duoneb - NEB QID PRN SHORT OF BREATH/WHEEZING Clonidine 0.1 mg 05/18/19 22:00 05/18/19 21:46 Catapres - PO 0.1 mg HS MARLEN Administration Escitalopram Oxalate 20 mg 05/17/19 11:45 05/19/19 10:29 Lexapro - PO 20 mg DAILY MARLEN Administration Nicotine 14 mg 05/17/19 10:00 05/19/19 10:22 Nicoderm Patch - TD 14 mg DAILY MARLEN Administration Pramipexole Dihydrochloride 0.25 mg 05/17/19 22:00 05/19/19 10:29 Mirapex - PO 0.25 mg BID MARLEN Administration Pregabalin 200 mg 05/17/19 14:00 05/19/19 06:07 Lyrica - PO 200 mg TID MARLEN Administration Topiramate 25 mg 05/17/19 22:00 05/19/19 10:29 Topamax - PO 25 mg BID MARLEN Administration Tramadol HCl 50 mg 05/18/19 16:13 05/19/19 10:22 Ultram - PO 50 mg Q8H PRN Administration PAIN LEVEL 7 - 10 Umeclidinium/Vilanterol 1 puff 05/17/19 10:00 05/19/19 10:29 Anoro Ellipta 62.5-25 Mcg Inh IH 1 puff DAILY MARLEN Administration Microbiology 05/16/19 20:50 Blood - Peripheral Venous Blood Culture - Preliminary NO GROWTH OBTAINED AFTER 48 HOURS, INCUBATION TO CONTINUE FOR 3 DAYS. 05/16/19 20:50 Blood - Peripheral Venous Blood Culture - Preliminary NO GROWTH OBTAINED AFTER 48 HOURS, INCUBATION TO CONTINUE FOR 3 DAYS. 05/16/19 20:50 Urine - Urine Clean Catch Urine Culture - Final NO GROWTH OBTAINED Constitutional: Yes: No Distress, Calm Eyes: Yes: Conjunctiva Clear HENT: Yes: Atraumatic Cardiovascular: Yes: Regular Rate and Rhythm Respiratory: Yes: Regular, CTA Bilaterally Gastrointestinal: Yes: Normal Bowel Sounds, Soft Musculoskeletal: Yes: WNL Extremities: Yes: WNL Edema: No Wound/Incision: Yes: Dressing Dry and Intact (R plantar foot) Neurological: Yes: Alert, Oriented Psychiatric: Yes: Alert, Oriented Labs: CBC, BMP 05/17/19 07:58 05/17/19 07:58 Discharge Summary Problems reviewed: Yes Reason For Visit: DIZZINESS Current Active Problems Abnormal finding on MRI of brain (Acute) Anxiety disorder due to medical condition (Acute) COPD (chronic obstructive pulmonary disease) (Acute) 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 Who presents to the ED with dizziness. Patient reports that she has been feeling dizzy for the past 3-4 weeks. She reports usually feeling ok in the morning after waking up, but during the day, she usually develops a headache and vertigo that she describes as feeling like everything is moving. Patient reports that the symptoms are persistent until she goes to sleep, and is worse with movement, worse when sitting. Patient reports nausea, NBNB vomiting, and occasional double vision with the dizziness. Patient denies any focal weakness, CP, SOB, palpitations, back pain, neck pain. Patient reports that she has had difficulty ambulating for the past several weeks, needing someone to help her walk around. Dizziness has subsided since starting on meclizine. Evaluated by podiatry while in patient and recommendations reviewed. No antibiotics needed at present. Condition: Stable - Instructions Diet, Activity, Other Instructions: Follow up with pmd in 2 weeks post discharge Follow up with Cardiology 1 week after discharge to follow up on hypotension follow up with podiatry do not take BP meds until evaluated by Cardiology return to ER if develop severe pain, difficulty breathing, chest pain offload R foot Referrals: Pau Leyva MD [Primary Care Provider] - Odin Freire MD [Staff Physician] - Sanya Sifuentes MD [Staff Physician] - Disposition: HOME - Home Medications Comprehensive Discharge Medication List: Ambulatory Orders Clonidine HCl 0.1 mg PO DAILY 05/16/19 Cyclobenzaprine HCl 10 mg PO HS 05/16/19 Lisinopril 20 mg PO DAILY 05/16/19 Pregabalin 200 mg PO TID 05/16/19 Tramadol HCl 50 mg PO QID 05/16/19 Umeclidinium Brm/Vilanterol Tr [Anoro Ellipta 62.5-25 Mcg INH] 1 puff IN DAILY 05/16/19 Albuterol Sulfate Inhaler - [Ventolin Hfa Inhaler -] 1 - 2 inh PO PRN 05/17/19 Escitalopram Oxalate [Lexapro -] 5 mg PO DAILY 05/17/19 Cyclobenzaprine HCl [Flexeril -] 10 mg PO HS tablet 05/19/19 Escitalopram Oxalate [Lexapro -] 20 mg PO DAILY tablet 05/19/19 Meclizine HCl [Antivert -] 25 mg PO Q6H PRN #30 tablet 05/19/19 Nicotine Patch [Nicoderm Patch -] 14 mg TD DAILY #30 patch 05/19/19 Pramipexole Dihydrochloride [Mirapex -] 0.25 mg PO BID #60 tablet 05/19/19 Pregabalin [Lyrica -] 200 mg PO TID capsule MDD 3 05/19/19 Topiramate [Topamax -] 25 mg PO BID #30 tablet 05/19/19
== END 2019-05-19 14:00 | disposition home or self-care (01) | DRG 71 ==
LOC: JER 15:02 → JERBED 20:05 → J5S 05-17 04:02
PROVIDERS: ADMIT Internal Medicine; ATTEND Family Medicine
DX: G93.89 Other specified disorders of brain (principal); L97.518 Non-pressure chronic ulcer of other part of right foot with other specified severity; G45.0 Vertebro-basilar artery syndrome; J44.9 Chronic obstructive pulmonary disease, unspecified; I10 Essential (primary) hypertension; F41.9 Anxiety disorder, unspecified; M54.5 Low back pain; F17.210 Nicotine dependence, cigarettes, uncomplicated; R90.89 Other abnormal findings on diagnostic imaging of central nervous system; R42 Dizziness and giddiness; S91.301A Unspecified open wound, right foot, initial encounter; M54.10 Radiculopathy, site unspecified; G43.909 Migraine, unspecified, not intractable, without status migrainosus; G25.81 Restless legs syndrome; I95.1 Orthostatic hypotension; F06.4 Anxiety disorder due to known physiological condition; Z91.14 Patient's other noncompliance with medication regimen; E66.9 Obesity, unspecified; Z68.36 Body mass index [BMI] 36.0-36.9, adult
CPT/HCPCS: 36415; 70450-TC; 70551-TC; 71045-TC-FY; 73630-TC-RT-FY; 80048; 80053; 80307; 81003; 83036; 83735; 84100; 85025; 87040; 87086; 93005; 93010; 94640; 97116-GP; 97162-GP; 99284-25; J0131; J0735

== ENCOUNTER 2021-09-18 15:15 | Inpatient (IN) | payer OTHER ==
[2021-09-18 18:04] LABS: BASO % 0.7 % (0-2.0); EOS % 0.5 % (0-4.5); HEMATOCRIT 43.5 % (32.4-45.2); HEMOGLOBIN 14.1 GM/dL (10.7-15.3); LYMPH % 15.5 % (8-40); MCH 27.6 pg (25.7-33.7); MCHC 32.5 g/dl (32.0-36.0); MEAN CELL VOLUME 85.1 fl (80-96); MEAN PLT VOLUME 9.6 fl (7.5-11.1); MONO % 8.8 % (3.8-10.2); NEUT % 74.5 % (42.8-82.8); PLATELET COUNT 330 10^3/uL (134-434); RBC 5.12 M/mm3 (3.60-5.2); WHITE BLOOD COUNT 10.7 K/mm3 (4.0-10.0)
[2021-09-18] MEDS ORDERED: ACETAMINOPHEN INJECTION 100 ML IVPB ONE (18:17)
[2021-09-18] MEDS ORDERED: ACETAMINOPHEN 1000 MG/100 ML BAG IVPB ONE (18:17)
[2021-09-18 18:29] LABS: CALCIUM 9.4 mg/dL (8.5-10.1)
[2021-09-18 18:30] LABS: ALBUMIN 3.3 g/dl (3.4-5.0); BLOOD UREA NITROGEN 23.2 mg/dL (7-18)
[2021-09-18 18:33] LABS: CREATININE 1.3 mg/dL (0.55-1.3)
[2021-09-18 18:35] LABS: BILIRUBIN,TOTAL 0.3 mg/dL (0.2-1)
[2021-09-18] MEDS ORDERED: LACTATED RINGERS SOLUTION 1000 ML INFUS.BAG IV ONE ×2 (18:36→19:50)
[2021-09-18] MEDS ORDERED: traMADol HCL 50 MG TABLET PO ONE (19:51)
[2021-09-18] MEDS ORDERED: PREGABALIN 100 MG CAPSULE PO ONE (19:51)
[2021-09-18] MEDS ORDERED: traMADol HCL 50 MG TABLET ONE (19:57)
[2021-09-18] MEDS ORDERED: PREGABALIN 100 MG CAPSULE ONE (19:58)
[2021-09-18 21:47] LABS: BASO % 0.5 % (0-2.0); EOS % 0.7 % (0-4.5); HEMATOCRIT 19.6 % (32.4-45.2); LYMPH % 17.9 % (8-40); MCH 27.8 pg (25.7-33.7); MCHC 31.1 g/dl (32.0-36.0); MEAN CELL VOLUME 89.4 fl (80-96); MEAN PLT VOLUME 9.1 fl (7.5-11.1); MONO % 13.4 % (3.8-10.2); NEUT % 67.5 % (42.8-82.8); PLATELET COUNT 127 10^3/uL (134-434); RDW 16.7 % (11.6-15.6)
[2021-09-18 21:50] LABS: HEMOGLOBIN 6.1 GM/dL (10.7-15.3)
[2021-09-18 21:53] LABS: INR 1.7 (0.83-1.09); PROTHROMBIN TIME (PATIENT) 19.7 SEC (9.7-13.0)
[2021-09-18 21:56] LABS: ACTIVATED PTT 33.9 SECONDS (25.2-36.5)
[2021-09-18 22:15] LABS: ANISOCYTOSIS 2+; MACROCYTOSIS 0; TARGET CELLS 1+
[2021-09-18 22:54] LABS: BASO % 1.2 % (0-2.0); EOS % 1.1 % (0-4.5); HEMATOCRIT 39.9 % (32.4-45.2); LYMPH % 25.2 % (8-40); MCH 27.7 pg (25.7-33.7); MCHC 32.6 g/dl (32.0-36.0); MEAN CELL VOLUME 84.9 fl (80-96); MEAN PLT VOLUME 9.7 fl (7.5-11.1); MONO % 5.9 % (3.8-10.2); NEUT % 66.6 % (42.8-82.8); PLATELET COUNT 269 10^3/uL (134-434); RDW 16.7 % (11.6-15.6); WHITE BLOOD COUNT 8.6 K/mm3 (4.0-10.0)
[2021-09-18 22:56] LABS: VENOUS BASE EXCESS -3.7 mmol/L (-2-2); VENOUS O2 SATURATION 93.8 % (70-80); VENOUS PCO2 34.2 mmHg (38-52); VENOUS PH 7.393 (7.310-7.410)
[2021-09-18 23:37] LABS: ANISOCYTOSIS 1+; MACROCYTOSIS 0
[2021-09-19 00:59] LABS: EPI CELLS 21 /uL (0-25.1); HYALINE CASTS 5 /uL (0-3.1); URINE APPEARANCE CLOUDY; URINE BACTERIA >9,000 /uL (0-1359); URINE BILIRUBIN NEGATIVE (NEGATIVE); URINE COLOR YELLOW; URINE GLUCOSE (UA) NEGATIVE (NEGATIVE); URINE KETONE NEGATIVE (NEGATIVE); URINE LEUK ESTERASE 1+ (NEGATIVE); URINE NITRITE POSITIVE (NEGATIVE); URINE PROTEIN TRACE (NEGATIVE); URINE RBC 10 /uL (0-23.9); URINE UROBILINOGEN 0.2 mg/dL (0.2-1.0); URINE WBC 163 /uL (0-25.8)
[2021-09-19] MEDS ORDERED: CEFTRIAXONE 1 GM in DEXTROSE 5%-WATER - 100 ML IVPB ONE (01:49)
[2021-09-19] MEDS ORDERED: CEFTRIAXONE 1 GM/50 ML BAG ONE (01:53)
[2021-09-19] MEDS ORDERED: SODIUM CHLORIDE 1,000 ML IV SCH (03:00)
[2021-09-19 08:09] LABS: BASO % 0.8 % (0-2.0); EOS % 2.1 % (0-4.5); HEMOGLOBIN 12.1 GM/dL (10.7-15.3); LYMPH % 23.8 % (8-40); MCH 27.4 pg (25.7-33.7); MCHC 31.9 g/dl (32.0-36.0); MEAN CELL VOLUME 85.9 fl (80-96); MEAN PLT VOLUME 9.3 fl (7.5-11.1); MONO % 15.5 % (3.8-10.2); NEUT % 57.8 % (42.8-82.8); PLATELET COUNT 245 10^3/uL (134-434); RBC 4.42 M/mm3 (3.60-5.2); WHITE BLOOD COUNT 6.8 K/mm3 (4.0-10.0)
[2021-09-19 08:32] LABS: BLOOD UREA NITROGEN 24.6 mg/dL (7-18)
[2021-09-19] MEDS ORDERED: PREGABALIN 100 MG CAPSULE ONE (08:32)
[2021-09-19] MEDS ORDERED: traMADol HCL 50 MG TABLET ONE (08:32)
[2021-09-19 08:37] LABS: CALCIUM 7.5 mg/dL (8.5-10.1)
[2021-09-19] MEDS ORDERED: NICOTINE 14 MG/24 HOURS TOPICAL PATCH TD ONE (09:10)
[2021-09-19] MEDS ORDERED: ACETAMINOPHEN 325 MG TABLET (FP) PO PRN (09:33)
[2021-09-19] MEDS ORDERED: HEPARIN NA (PORCINE) 5,000 UNITS/ML 1ML VIAL SQ SCH (10:00)
[2021-09-19 14:42] VITALS: BP 150/90; PULSE 96; TEMP 98.3
[2021-09-19 15:17] VITALS: BMI 38.0
[2021-09-19] MEDS ORDERED: FLU VACC QS2021-22(6MOS UP)/PF 60 MCG/0.5 ML SYRINGE IM ONE (17:00)
[2021-09-20] MEDS ORDERED: CEFTRIAXONE 1 GM in DEXTROSE 5%-WATER - 50 ML IVPB SCH (10:00)
== END 2021-09-19 18:09 | disposition home or self-care (01) | DRG 690 ==
LOC: JER 15:15 → JERBED 20:04 → J5S 09-19 13:21
PROVIDERS: ADMIT Hospitalist; ATTEND Family Medicine
DX: N39.0 Urinary tract infection, site not specified (principal); J44.9 Chronic obstructive pulmonary disease, unspecified; I07.1 Rheumatic tricuspid insufficiency; I95.9 Hypotension, unspecified; G89.29 Other chronic pain; M54.9 Dorsalgia, unspecified; I10 Essential (primary) hypertension; R00.0 Tachycardia, unspecified; F17.200 Nicotine dependence, unspecified, uncomplicated; B96.20 Unspecified Escherichia coli [E. coli] as the cause of diseases classified elsewhere; E66.9 Obesity, unspecified; Z68.38 Body mass index [BMI] 38.0-38.9, adult
CPT/HCPCS: 36415; 71045-TC-FY; 80048; 80053; 81003; 82550; 82553; 82803; 83605; 84484; 85025; 85610; 85730; 87040; 87086; 87186; 90686; 93005; 93010; 99285-25; C9803-CS; G0008; J1644; U0003; U0005

== ENCOUNTER 2022-01-10 21:31 | Inpatient (IN) | payer OTHER ==
[2022-01-10] MEDS ORDERED: FOLIC ACID INJECTION - 1 MG, THIAMINE HCL 100 MG, MULTIVIT INJECTION ADULT 10 ML in SOD... IVPB ONE (22:32)
[2022-01-10] MEDS ORDERED: SODIUM CHLORIDE 1,000 ML IV STA (22:34)
[2022-01-10] MEDS ORDERED: ALBUTEROL SO4 2.5/IPRATROPIUM 0.5 INH SOL 3 ML VIAL.NEB. NEB ONE (22:38)
[2022-01-10] MEDS: ALBUTEROL SO4 2.5/IPRATROPIUM 0.5 INH SOL 3 ML VIAL.NEB. NEB SCH (23:04)
[2022-01-10] MEDS ORDERED: diazePAM CARPU-JECT 10 MG/2 ML DISP.SYRIN IVPUSH ONE ×2 (23:05→23:58)
[2022-01-10] MEDS ORDERED: ACETAMINOPHEN 1000 MG/100 ML BAG IVPB ONE (23:06)
[2022-01-10 23:08] LABS: BASO % 0.2 % (0-2.0); EOS % 0.5 % (0-4.5); HEMATOCRIT 47.4 % (32.4-45.2); HEMOGLOBIN 15.6 GM/dL (10.7-15.3); LYMPH % 17.2 % (8-40); MCH 26.8 pg (25.7-33.7); MCHC 32.8 g/dl (32.0-36.0); MEAN CELL VOLUME 81.9 fl (80-96); MONO % 7.9 % (3.8-10.2); NEUT % 74.2 % (42.8-82.8); PLATELET COUNT 391 10^3/uL (134-434); RDW 17.2 % (11.6-15.6); WHITE BLOOD COUNT 15.1 K/mm3 (4.0-10.0)
[2022-01-10] MEDS ORDERED: diazePAM CARPU-JECT 10 MG/2 ML DISP.SYRIN ONE (23:10)
[2022-01-10 23:23] LABS: ALBUMIN 3.3 g/dl (3.4-5.0); BLOOD UREA NITROGEN 44.1 mg/dL (7-18); CALCIUM 8.5 mg/dL (8.5-10.1)
[2022-01-10 23:29] LABS: BILIRUBIN,TOTAL 0.6 mg/dL (0.2-1); TOT PROT 7.3 g/dl (6.4-8.2)
[2022-01-10 23:33] LABS: INR 1.06 (0.83-1.09); PROTHROMBIN TIME (PATIENT) 12.2 SEC (9.7-13.0)
[2022-01-10 23:36] LABS: ACTIVATED PTT 29.8 SECONDS (25.2-36.5)
[2022-01-10] MEDS ORDERED: DEXAMETHASONE SOD PHOSPHATE 4 MG/1 ML VIAL IVPUSH ONE (23:56)
[2022-01-10] MEDS ORDERED: REMDESIVIR 200 MG in SODIUM CHLORIDE 250 ML IVPB ONE (23:57)
[2022-01-11] MEDS ORDERED: DEXAMETHASONE SOD PHOSPHATE 10 MG/1 ML VIAL ONE (00:14)
[2022-01-11] MEDS ORDERED: ACETAMINOPHEN 325 MG TABLET (FP) PO PRN ×2 (00:14→07:16)
[2022-01-11] MEDS ORDERED: ACETAMINOPHEN INJECTION 100 ML IVPB ONE (00:14)
[2022-01-11] MEDS ORDERED: DOCUSATE SODIUM 100 MG CAPSULE (FP) PO PRN (00:14)
[2022-01-11] MEDS ORDERED: diazePAM CARPU-JECT 10 MG/2 ML DISP.SYRIN ONE (00:14)
[2022-01-11] MEDS ORDERED: traMADol HCL 50 MG TABLET ONE (01:40)
[2022-01-11] MEDS ORDERED: LORazepam 1 MG TABLET ONE (01:40)
[2022-01-11] MEDS: traMADol HCL 50 MG TABLET PO PRN ×3 (01:47→18:43)
[2022-01-11 04:18] VITALS: BMI 38.0
[2022-01-11] MEDS ORDERED: LORazepam 2 MG TABLET PO PRN (05:00)
[2022-01-11] MEDS: PREGABALIN 100 MG CAPSULE PO SCH ×3 (05:06→22:24)
[2022-01-11] MEDS: LORazepam 1 MG TABLET PO PRN ×2 (05:06→12:51)
[2022-01-11] MEDS: ALBUTEROL SO4 2.5/IPRATROPIUM 0.5 INH SOL 3 ML VIAL.NEB. NEB SCH ×3 (08:00→20:00)
[2022-01-11] MEDS: NICOTINE 14 MG/24 HOURS TOPICAL PATCH TD SCH (10:21)
[2022-01-11] MEDS: TOPIRAMATE 25 MG TABLET PO SCH ×2 (10:21→22:25)
[2022-01-11] MEDS: ENOXAPARIN NA (PORCINE) 40 MG/0.4 ML DISP.SYRIN SQ SCH (10:22)
[2022-01-11] MEDS: LISINOPRIL 20 MG TABLET PO SCH (10:33)
[2022-01-11] MEDS ORDERED: LORazepam 2 MG TABLET PO SCH (11:46)
[2022-01-11] MEDS: LORazepam 1 MG TABLET PO SCH ×2 (17:02→22:25)
[2022-01-11] MEDS: DEXTROSE 5%-NORMAL SALINE 1,000 ML IV SCH ×2 (18:41→18:43)
[2022-01-11] MEDS: REMDESIVIR 100 MG in SODIUM CHLORIDE 250 ML IVPB SCH (22:25)
[2022-01-11] MEDS ORDERED: ALBUTEROL SO4 2.5/IPRATROPIUM 0.5 INH SOL 3 ML VIAL.NEB. NEB SCH (22:33)
[2022-01-12] MEDS: DEXTROSE 5%-NORMAL SALINE 1,000 ML IV SCH (00:15)
[2022-01-12] MEDS: traMADol HCL 50 MG TABLET PO PRN ×2 (02:25→10:28)
[2022-01-12] MEDS: LORazepam 1 MG TABLET PO SCH ×4 (05:49→23:55)
[2022-01-12] MEDS: PREGABALIN 100 MG CAPSULE PO SCH ×3 (05:50→21:17)
[2022-01-12] MEDS: ALBUTEROL SO4 2.5/IPRATROPIUM 0.5 INH SOL 3 ML VIAL.NEB. NEB SCH ×3 (07:42→20:20)
[2022-01-12 08:23] LABS: BASO % 0.8 % (0-2.0); EOS % 0.3 % (0-4.5); HEMATOCRIT 35.6 % (32.4-45.2); HEMOGLOBIN 11.4 GM/dL (10.7-15.3); LYMPH % 21.1 % (8-40); MCH 26.7 pg (25.7-33.7); MCHC 32.2 g/dl (32.0-36.0); MEAN CELL VOLUME 82.9 fl (80-96); MEAN PLT VOLUME 10.7 fl (7.5-11.1); MONO % 9.3 % (3.8-10.2); NEUT % 68.5 % (42.8-82.8); PLATELET COUNT 262 10^3/uL (134-434); RBC 4.29 M/mm3 (3.60-5.2); RDW 16.8 % (11.6-15.6); WHITE BLOOD COUNT 8.2 K/mm3 (4.0-10.0)
[2022-01-12 08:31] LABS: EPI CELLS 23 /uL (0-25.1); HYALINE CASTS 0 /uL (0-3.1); PH,URINE 6.5 (5.0-8.0); URINE APPEARANCE CLOUDY; URINE BACTERIA >9,000 /uL (0-1359); URINE BILIRUBIN NEGATIVE (NEGATIVE); URINE COLOR YELLOW; URINE GLUCOSE (UA) NEGATIVE (NEGATIVE); URINE KETONE NEGATIVE (NEGATIVE); URINE LEUK ESTERASE 2+ (NEGATIVE); URINE NITRITE NEGATIVE (NEGATIVE); URINE PROTEIN TRACE (NEGATIVE); URINE RBC 27 /uL (0-23.9); URINE WBC 36 /uL (0-25.8)
[2022-01-12 08:41] LABS: CHLORIDE 108 mmol/L (98-107); SODIUM 139 mmol/L (136-145)
[2022-01-12 08:44] LABS: ANION GAP 4 MMOL/L (8-16); CO2 26 mmol/L (21-32); GLUCOSE,RANDOM 109 mg/dL (74-106); MAGNESIUM 1.9 mg/dL (1.8-2.4)
[2022-01-12 08:47] LABS: CREATININE 0.5 mg/dL (0.55-1.3)
[2022-01-12 08:54] LABS: CALCIUM 7.2 mg/dL (8.5-10.1); PHOSPHOROUS 0.9 mg/dL (2.5-4.9)
[2022-01-12] MEDS: DEXAMETHASONE 4 MG TABLET (FP) PO SCH (09:08)
[2022-01-12] MEDS: MULTIVITAMINS (DAILY MVI) TABLET (FP) PO SCH (09:08)
[2022-01-12] MEDS: THIAMINE HCL 100 MG TABLET (FP) PO SCH (09:08)
[2022-01-12] MEDS: ENOXAPARIN NA (PORCINE) 40 MG/0.4 ML DISP.SYRIN SQ SCH (09:09)
[2022-01-12] MEDS: NICOTINE 14 MG/24 HOURS TOPICAL PATCH TD SCH (09:09)
[2022-01-12] MEDS: FOLIC ACID 1 MG TABLET (FP) PO SCH (09:09)
[2022-01-12] MEDS: TOPIRAMATE 25 MG TABLET PO SCH ×2 (09:09→21:18)
[2022-01-12] MEDS: LISINOPRIL 20 MG TABLET PO SCH (09:09)
[2022-01-12] MEDS ORDERED: POTASSIUM PHOSPHATE 30 MM in SODIUM CHLORIDE 500 ML IVPB ONE (09:20)
[2022-01-12] MEDS: NAPH,MB-DB/K PH,MBDB POWDER PACKET PO SCH ×2 (13:15→21:18)
[2022-01-12] MEDS: LORazepam 1 MG TABLET PO PRN (19:36)
[2022-01-12] MEDS: REMDESIVIR 100 MG in SODIUM CHLORIDE 250 ML IVPB SCH (21:18)
[2022-01-13] MEDS ORDERED: LORazepam 0.5 MG TABLET PO PRN
[2022-01-13] MEDS: DEXTROSE 5%-NORMAL SALINE 1,000 ML IV SCH (02:05)
[2022-01-13] MEDS: LORazepam 0.5 MG TABLET PO SCH ×4 (05:41→23:16)
[2022-01-13] MEDS: PREGABALIN 100 MG CAPSULE PO SCH ×3 (05:42→21:07)
[2022-01-13] MEDS: NAPH,MB-DB/K PH,MBDB POWDER PACKET PO SCH ×3 (05:42→21:07)
[2022-01-13] MEDS: traMADol HCL 50 MG TABLET PO PRN ×3 (05:51→22:40)
[2022-01-13 07:45] LABS: BASO % 0.1 % (0-2.0); HEMATOCRIT 38.6 % (32.4-45.2); HEMOGLOBIN 12.2 GM/dL (10.7-15.3); MCH 26.6 pg (25.7-33.7); MCHC 31.6 g/dl (32.0-36.0); MEAN CELL VOLUME 84.3 fl (80-96); MEAN PLT VOLUME 10.3 fl (7.5-11.1); MONO % 7.1 % (3.8-10.2); NEUT % 81.8 % (42.8-82.8); PLATELET COUNT 269 10^3/uL (134-434); RBC 4.58 M/mm3 (3.60-5.2); RDW 17.1 % (11.6-15.6); WHITE BLOOD COUNT 13.4 K/mm3 (4.0-10.0)
[2022-01-13] MEDS: ALBUTEROL SO4 2.5/IPRATROPIUM 0.5 INH SOL 3 ML VIAL.NEB. NEB SCH ×3 (07:45→20:39)
[2022-01-13 08:05] LABS: ALBUMIN 2.7 g/dl (3.4-5.0); CALCIUM 7.4 mg/dL (8.5-10.1); MAGNESIUM 1.6 mg/dL (1.8-2.4)
[2022-01-13 08:07] LABS: PHOSPHOROUS 1.3 mg/dL (2.5-4.9)
[2022-01-13 08:08] LABS: CREATININE 0.5 mg/dL (0.55-1.3)
[2022-01-13 08:10] LABS: BILIRUBIN,TOTAL 0.5 mg/dL (0.2-1)
[2022-01-13] MEDS: MULTIVITAMINS (DAILY MVI) TABLET (FP) PO SCH (09:17)
[2022-01-13] MEDS: THIAMINE HCL 100 MG TABLET (FP) PO SCH (09:17)
[2022-01-13] MEDS: TOPIRAMATE 25 MG TABLET PO SCH ×2 (09:17→21:07)
[2022-01-13] MEDS: NICOTINE 14 MG/24 HOURS TOPICAL PATCH TD SCH (09:17)
[2022-01-13] MEDS: FOLIC ACID 1 MG TABLET (FP) PO SCH (09:18)
[2022-01-13] MEDS: DEXAMETHASONE 4 MG TABLET (FP) PO SCH (09:18)
[2022-01-13] MEDS: ENOXAPARIN NA (PORCINE) 40 MG/0.4 ML DISP.SYRIN SQ SCH (09:18)
[2022-01-13] MEDS: LISINOPRIL 20 MG TABLET PO SCH (09:18)
[2022-01-13] MEDS ORDERED: MAGNESIUM OXIDE 400 MG TABLET (FP) PO ONE (14:08)
[2022-01-13] MEDS ORDERED: CEFTRIAXONE 1 GM in DEXTROSE 5%-WATER - 50 ML IVPB SCH (14:15)
[2022-01-13] MEDS: MAGNESIUM OXIDE 400 MG TABLET (FP) PO SCH (21:07)
[2022-01-13] MEDS: REMDESIVIR 100 MG in SODIUM CHLORIDE 250 ML IVPB SCH (22:40)
[2022-01-14] MEDS ORDERED: LORazepam 0.5 MG TABLET PO ONE (05:00)
[2022-01-14] MEDS: PREGABALIN 100 MG CAPSULE PO SCH ×2 (05:49→13:16)
[2022-01-14] MEDS: NAPH,MB-DB/K PH,MBDB POWDER PACKET PO SCH ×2 (05:50→13:15)
[2022-01-14 06:15] VITALS: RESP 17
[2022-01-14] MEDS: traMADol HCL 50 MG TABLET PO PRN ×2 (06:43→13:14)
[2022-01-14] MEDS: ALBUTEROL SO4 2.5/IPRATROPIUM 0.5 INH SOL 3 ML VIAL.NEB. NEB SCH ×2 (07:26→13:20)
[2022-01-14 09:47] LABS: BASO % 0.7 % (0-2.0); EOS % 0.2 % (0-4.5); HEMATOCRIT 38.2 % (32.4-45.2); HEMOGLOBIN 12.6 GM/dL (10.7-15.3); LYMPH % 23.9 % (8-40); MCH 27.6 pg (25.7-33.7); MEAN CELL VOLUME 83.6 fl (80-96); MONO % 8.8 % (3.8-10.2); NEUT % 66.4 % (42.8-82.8); PLATELET COUNT 242 10^3/uL (134-434); RBC 4.57 M/mm3 (3.60-5.2); RDW 17.7 % (11.6-15.6); WHITE BLOOD COUNT 10.6 K/mm3 (4.0-10.0)
[2022-01-14 10:02] LABS: CHLORIDE 108 mmol/L (98-107); SODIUM 142 mmol/L (136-145)
[2022-01-14 10:05] LABS: CALCIUM 7.8 mg/dL (8.5-10.1); MAGNESIUM 1.6 mg/dL (1.8-2.4)
[2022-01-14 10:06] LABS: ALBUMIN 2.6 g/dl (3.4-5.0); ANION GAP 8 MMOL/L (8-16); BLOOD UREA NITROGEN 16.1 mg/dL (7-18); CO2 25 mmol/L (21-32); GLUCOSE,RANDOM 126 mg/dL (74-106)
[2022-01-14 10:09] LABS: CREATININE 0.6 mg/dL (0.55-1.3); SGOT/AST 27 U/L (15-37); SGPT/ALT 34 U/L (13-61)
[2022-01-14 10:10] LABS: BILIRUBIN,TOTAL 0.4 mg/dL (0.2-1); TOT PROT 5.7 g/dl (6.4-8.2)
[2022-01-14 10:11] LABS: ALK PHOS 61 U/L (45-117); PHOSPHOROUS 1.2 mg/dL (2.5-4.9)
[2022-01-14] MEDS ORDERED: MAGNESIUM OXIDE 400 MG TABLET (FP) PO ONE (10:17)
[2022-01-14] MEDS ORDERED: POTASSIUM PHOSPHATE 15 MM in SODIUM CHLORIDE 250 ML IVPB ONE (11:00)
[2022-01-14] MEDS: NICOTINE 14 MG/24 HOURS TOPICAL PATCH TD SCH (11:05)
[2022-01-14] MEDS: TOPIRAMATE 25 MG TABLET PO SCH (11:06)
[2022-01-14] MEDS: DEXAMETHASONE 4 MG TABLET (FP) PO SCH (11:06)
[2022-01-14] MEDS: MAGNESIUM OXIDE 400 MG TABLET (FP) PO SCH (11:06)
[2022-01-14] MEDS: MULTIVITAMINS (DAILY MVI) TABLET (FP) PO SCH (11:07)
[2022-01-14] MEDS: ENOXAPARIN NA (PORCINE) 40 MG/0.4 ML DISP.SYRIN SQ SCH (11:07)
[2022-01-14] MEDS: LISINOPRIL 20 MG TABLET PO SCH (11:07)
[2022-01-14] MEDS: THIAMINE HCL 100 MG TABLET (FP) PO SCH (11:07)
[2022-01-14] MEDS: FOLIC ACID 1 MG TABLET (FP) PO SCH (11:07)
[2022-01-14 18:19] VITALS: BP 151/90; PULSE 84; TEMP 97.7
== END 2022-01-14 19:02 | disposition home or self-care (01) | DRG 896 ==
LOC: JER 21:31 → JERBED 22:38 → J4S 01-11 03:30
PROVIDERS: ADMIT Internal Medicine; ATTEND Nurse Practitioner Family
PROC: HZ2ZZZZ Detoxification Services for Substance Abuse Treatment (ICD-10-PCS; principal; 2022-01-11)
PROC: XW033E5 Introduction of Remdesivir Anti-infective into Peripheral Vein, Percutaneous Approach, New Technology Group 5 (ICD-10-PCS; 2022-01-11)
DX: F10.129 Alcohol abuse with intoxication, unspecified (principal); U07.1 COVID-19; D72.829 Elevated white blood cell count, unspecified; I10 Essential (primary) hypertension; J44.9 Chronic obstructive pulmonary disease, unspecified; F17.210 Nicotine dependence, cigarettes, uncomplicated; E83.39 Other disorders of phosphorus metabolism
CPT/HCPCS: 36415; 71045-TC-FY; 80048; 80053; 80307; 81003; 82150; 82728; 83690; 83735; 84100; 85025; 85610; 85730; 86140; 87040; 87086; 87186; 93005; 93010; 94010; 94761; 99285-25; C9399; C9803-CS; U0003; U0005

== ENCOUNTER 2023-10-09 02:33 | Emergency (ER) | payer OTHER ==
[2023-10-09 02:44] VITALS: TEMP 98; BMI 34.9
[2023-10-09] MEDS ORDERED: FAMOTIDINE 20 MG/50 ML IVPB 20 MG/50 ML MG IVPB ONE (03:12)
[2023-10-09] MEDS ORDERED: ACETAMINOPHEN INJECTION 100 ML IVPB ONE ×2 (03:12→08:39)
[2023-10-09] MEDS ORDERED: ONDANSETRON 4 MG/2 ML VIAL ONE ×2 (03:12→09:10)
[2023-10-09] MEDS: FAMOTIDINE 20 MG/50 ML IVPB 20 MG/50 ML MG IVPB ONE (03:16)
[2023-10-09] MEDS: SODIUM CHLORIDE 0.9% 500 ML INFUS.BAG IV ONE ×2 (03:16→08:46)
[2023-10-09] MEDS: ONDANSETRON 4 MG/2 ML VIAL IVPUSH ONE ×3 (03:16→09:12)
[2023-10-09] MEDS: ACETAMINOPHEN 1000 MG/100 ML BAG IVPB ONE ×2 (03:17→08:46)
[2023-10-09 03:35] LABS: HEMATOCRIT 48.1 % (32.4-45.2); HEMOGLOBIN 15.9 GM/dL (10.7-15.3); MCH 27.4 pg (25.7-33.7); MEAN PLT VOLUME 9.2 fl (7.5-11.1); PLATELET COUNT 428 10^3/uL (134-434); RBC 5.79 M/mm3 (3.60-5.2); RDW 18.5 % (11.6-15.6)
[2023-10-09 03:49] LABS: POTASSIUM 4.2 mmol/L (3.5-5.1)
[2023-10-09 03:53] LABS: ALBUMIN 3.8 g/dl (3.4-5.0); BLOOD UREA NITROGEN 18.4 mg/dL (7-18); CALCIUM 9.5 mg/dL (8.5-10.1); MAGNESIUM 1.9 mg/dL (1.8-2.4)
[2023-10-09] MEDS ORDERED: SUCRALFATE 1 GM TABLET (FP) ONE (03:56)
[2023-10-09 03:58] LABS: BILIRUBIN,TOTAL 0.5 mg/dL (0.2-1); TOT PROT 8.1 g/dl (6.4-8.2)
[2023-10-09] MEDS: SUCRALFATE 1 GM TABLET (FP) PO ONE (04:00)
[2023-10-09] MEDS: DEXTROSE 5%-NORMAL SALINE 500 ML IV ONE (04:14)
[2023-10-09 05:45] LABS: EPI CELLS >36 /uL (0-25.1); HYALINE CASTS 0 /uL (0-3.1); PH,URINE 7.5 (5.0-8.0); URINE APPEARANCE CLEAR; URINE BACTERIA 158 /uL (0-1359); URINE BILIRUBIN NEGATIVE (NEGATIVE); URINE COLOR YELLOW; URINE GLUCOSE (UA) 1+ (NEGATIVE); URINE KETONE 1+ (NEGATIVE); URINE LEUK ESTERASE NEGATIVE (NEGATIVE); URINE NITRITE NEGATIVE (NEGATIVE); URINE PROTEIN 1+ (NEGATIVE); URINE RBC 10 /uL (0-23.9); URINE UROBILINOGEN 0.2 mg/dL (0.2-1.0)
[2023-10-09] MEDS ORDERED: METOCLOPRAMIDE HCL INJECTION 10 MG/2 ML VIAL ONE (06:17)
[2023-10-09] MEDS ORDERED: KETOROLAC TROMETHAMINE 30 MG/1 ML VIAL ONE (06:18)
[2023-10-09] MEDS: METOCLOPRAMIDE HCL INJECTION 10 MG/2 ML VIAL IVPUSH ONE (06:26)
[2023-10-09] MEDS: KETOROLAC TROMETHAMINE 15 MG/ML VIAL IVPUSH ONE (06:26)
[2023-10-09 07:09] VITALS: RESP 18
[2023-10-09] MEDS ORDERED: LISINOPRIL 20 MG TABLET ONE (07:25)
[2023-10-09] MEDS ORDERED: cloNIDine HCL 0.1 MG TABLET ONE (07:25)
[2023-10-09] MEDS: cloNIDine HCL 0.1 MG TABLET PO ONE (07:28)
[2023-10-09] MEDS: LISINOPRIL 20 MG TABLET PO ONE (07:28)
[2023-10-09 07:39] LABS: URINE WBC 68.6 /uL (0-25.8)
[2023-10-09 08:49] LABS: ANISOCYTOSIS 0; MACROCYTOSIS 0
[2023-10-09] MEDS ORDERED: HYDROmorphone HCl 2 MG/ML VIAL ONE (10:46)
[2023-10-09] MEDS: HYDROmorphone HCl 2 MG/ML VIAL IVPUSH ONE (10:51)
[2023-10-09] MEDS ORDERED: PANTOPRAZOLE SODIUM 40 MG VIAL ONE (11:06)
[2023-10-09] MEDS ORDERED: MAG HYDROX/AL HYDROX/SIMETH 30 ML UNIT-DOSE CUP ONE (11:06)
[2023-10-09] MEDS: PANTOPRAZOLE SODIUM 40 MG VIAL IVPUSH ONE (11:11)
[2023-10-09] MEDS: MAG HYDROX/AL HYDROX/SIMETH 30 ML UNIT-DOSE CUP PO ONE (11:11)
[2023-10-09 11:12] VITALS: BP 118/66; PULSE 100
== END 2023-10-09 13:42 | disposition home or self-care (01) ==
LOC: JER 02:33
PROC: 3E033GC Introduction of Other Therapeutic Substance into Peripheral Vein, Percutaneous Approach (ICD-10-PCS; principal; 2023-10-09)
PROC: 3E033GC Introduction of Other Therapeutic Substance into Peripheral Vein, Percutaneous Approach (ICD-10-PCS; 2023-10-09)
PROC: 3E033GC Introduction of Other Therapeutic Substance into Peripheral Vein, Percutaneous Approach (ICD-10-PCS; 2023-10-09)
PROC: 3E033GC Introduction of Other Therapeutic Substance into Peripheral Vein, Percutaneous Approach (ICD-10-PCS; 2023-10-09)
PROC: 3E033GC Introduction of Other Therapeutic Substance into Peripheral Vein, Percutaneous Approach (ICD-10-PCS; 2023-10-09)
PROC: 3E033NZ Introduction of Analgesics, Hypnotics, Sedatives into Peripheral Vein, Percutaneous Approach (ICD-10-PCS; 2023-10-09)
PROC: 3E0333Z Introduction of Anti-inflammatory into Peripheral Vein, Percutaneous Approach (ICD-10-PCS; 2023-10-09)
PROC: 3E033NZ Introduction of Analgesics, Hypnotics, Sedatives into Peripheral Vein, Percutaneous Approach (ICD-10-PCS; 2023-10-09)
PROC: 3E033GC Introduction of Other Therapeutic Substance into Peripheral Vein, Percutaneous Approach (ICD-10-PCS; 2023-10-09)
PROC: 3E0337Z Introduction of Electrolytic and Water Balance Substance into Peripheral Vein, Percutaneous Approach (ICD-10-PCS; 2023-10-09)
DX: K82.8 Other specified diseases of gallbladder (principal); R10.13 Epigastric pain; R11.10 Vomiting, unspecified; R51.9 Headache, unspecified; R68.83 Chills (without fever)
CPT/HCPCS: 36415; 71045-TC-FY; 74177-TC; 76705-TC; 80053; 81003; 83690; 83735; 84484; 85025; 87086; 87186; 93005; 93010; 96361; 96365; 96375; 96376; 99285-25; J0131; Q9967